=== PATIENT | female | born 1990 | race African-American/Black ===

== ENCOUNTER 2020-12-09 10:57 | Emergency (ER) | payer OTHER, SELFPAY ==
--- NOTE | 2020-12-09 10:59 | ED.EAR ---
HPI - Ear Problem General Chief complaint: Ear Stated complaint: Ear Pain Time Seen by Provider: 12/09/20 10:59 Source: patient and RN notes reviewed History of Present Illness HPI Narrative: Patient is a 30-year-old female who presents the urgent care with complaints of possible damage to the left ear. Patient states that she jabbed a a little too hard with a Q-tip last night and then noticed some bleeding. Patient denies any difficulty hearing or pain in the ear. States that the bleeding stopped as of last night. No other acute complaints. No acute distress noted. Patient aware of the plan of care. Some parts of this dictation were generated by voice recognition software and may contain typographical and/or grammatical inaccuracies. Related Data Home Medications Medication Instructions Recorded Confirmed No Home Medications 12/09/20 12/09/20 Allergies Allergy/AdvReac Type Severity Reaction Status Date / Time No Known Allergies Allergy Verified 12/09/20 11:11 Review of Systems Review of Systems: Narrative: CONSTITUTIONAL: Denies fever, chills, or sweats. EYES: Denies visual changes, redness, or discharge. ENT: Denies rhinorrhea, congestion, sore throat. Reports a possible injury to the left ear with bleeding CARDIOVASCULAR: Denies chest pain, palpitations, or edema. RESPIRATORY: Denies cough or dyspnea. GASTROINTESTINAL: Denies abdominal pain, nausea, vomiting, or diarrhea. GENITOURINARY: Denies dysuria or hematuria. SKIN: Denies rash or itching. MUSCULOSKELETAL: Denies back pain, joint pain, or myalgia. NEUROLOGIC: Denies headache, numbness, or weakness. All other systems reviewed are negative, except as documented in HPI. PMFSH Comments At the time of my signature, I reviewed and agree with the nursing past medical, surgical, social, and family history. There is no relevant family history pertinent to the patient complaint. Exam Narrative: Exam Narrative: GENERAL: This is a well-nourished, well-developed patient, in no apparent distress. HEAD: normocephalic, atraumatic. EYES: PERRL. Sclera clear/white. Vision is grossly intact. EARS: External ears normal, small abrasion with pinpoint clot/scab noted to the auditory canal on the left. Right auditory canal clear and without drainage, TMs normal without perforation. Hearing grossly intact. NOSE: External nose normal with no obvious nasal discharge, nares without redness, no rhinorrhea. THROAT: Mucous membranes moist NECK: Neck supple CARDIOVASCULAR: Regular rate and rhythm without murmurs, gallops, or rubs. RESPIRATORY: Clear to auscultation. Breath sounds equal bilaterally. No wheezes, rales, or rhonchi. SKIN: warm, intact with no suspicious lesions or rash, good texture and turgor. NEURO: awake, alert, and oriented to person, place and time. There were no obvious focal neurologic abnormalities. EXTREMITIES: No clubbing, cyanosis, or edema. Course Vital Signs Vital signs: Vital Signs Temperature 97.1 F L 12/09/20 11:10 Pulse Rate 82 12/09/20 11:10 Respiratory Rate 16 12/09/20 11:10 Blood Pressure 104/87 12/09/20 11:10 Pulse Oximetry 100 12/09/20 11:10 Temperature 97.1 F L 12/09/20 11:10 Pulse Rate 82 12/09/20 11:10 Respiratory Rate 16 12/09/20 11:10 Blood Pressure 104/87 12/09/20 11:10 Pulse Oximetry 100 12/09/20 11:10 Reviewed Medical Decision Making MDM Narrative Medical decision making narrative: Advised the patient to not put anything in the ears. May be corley to stop using Q-tips. May use a warm compress as needed. Follow-up with your PCP within 2 to 5 days or for worsening symptoms or failure to improve. Differential Diagnosis Differential Diagnosis: Pneumonia, Allergic Rhinitis, Upper respiratory cough syndrome, Pharyngitis, Sinusitis, Bronchitis, otitis media, viral URI, Asthma/reactive airway disease, COPD, emphysema Vital Signs Vital Signs: Vital Signs Temperature 97.1 F L 12/09/20 11:10 Pulse R
[2020-12-09 11:10] VITALS: BP 104/87; PULSE 82; RESP 16; TEMP 36.2; O2SAT 100
== END 2020-12-09 11:18 | disposition home or self-care (01) ==
PROVIDERS: Emergency Provider Nurse Practitioner Family
DX: S00.412A Abrasion of left ear, initial encounter (principal)
CPT/HCPCS: 99202; G0463